=== PATIENT | male | born 1960 | race Caucasian/White ===

== ENCOUNTER 2018-08-17 11:28 | Emergency (ER) | payer MEDICARE ==
[~2018-08-17 11:28] MED LIST: DIOVAN80 MG PO; HYDROCHLOROTHIA25 MG; LISINOPRIL20 MG; NORCO 10-325 T1 EACH
--- OUTSIDE RECORDS SUMMARY | 2018-08-17 11:33 | XMS REPORT | Summary of Care ---
Author Author [facility] Address Unknown Phone Unavailable Encounter HQ Veneciar_romeo(FIN) [id number] Date(s): 06/20/18 - 07/19/18 [facility] Discharge Disposition: Home or Self Care Attending Physician: Pascual Roy MD Vital Signs No data available for this section Problem List Condition Effective Dates Status Health Status Informant Chronic back Resolved pain(Confirmed) Hearing Resolved loss(Confirmed)1 History of drug Resolved use(Confirmed) Hypertension(Confirm Resolved ed) Arthritis(Confirmed) Resolved ESTRELLA (obstructive Resolved sleep apnea)(Confirmed) Smoker(Confirmed) Resolved 1bilateral Allergies, Adverse Reactions, Alerts Substance Reaction Severity Status NKDA Active Medications No data available for this section Results No data available for this section Immunizations No data available for this section Procedures Procedure Date Related Diagnosis Body Site Status Total knee replacement1 Completed 1right Social History Social History Type Response Substance Abuse Use: Current. Type: Marijuana.1 Alcohol Past Smoking Status Current every day smoker; Type: Cigarettes; Lives with someone who smokes; Exposure to Tobacco Smoke pt smokes; Cigarette Smoking Last 365 Days Yes; Reg Smoking Cessation Counseling Yes2 entered on: 10/31/16 1history of cocaine use 21 pack per day. pt trying to quit. Assessment and Plan No data available for this section
--- OUTSIDE RECORDS SUMMARY | 2018-08-17 11:33 | XMS REPORT ---
Author Author [facility] Address Unknown Phone Unavailable Care Team Providers Care Hadoop Application Developer Name Role Phone Unavailable Unavailable Payers Payer Name Policy Type Policy Number Effective Date Expiration Date Problems This patient has no known problems. Allergies, Adverse Reactions, Alerts Allergy Name Allergy Type Status Severity Reaction(s) Onset Date Inactive Date Treating Clinician Comments No Known Allergies DA Active U 2017-07-31 00:00:00 Medications This patient has no known medications.
--- OUTSIDE RECORDS SUMMARY | 2018-08-17 11:33 | XMS REPORT | Summary of Care ---
Author Author [facility] [place] [facility] Address Unknown Phone Unavailable Encounter HQ Encntr_alinoris(FIN) [id number] Date(s): 09/01/16 - 09/01/16 [facility] [place] [address] [place] [address] [phone] Discharge Disposition: Home or Self Care Attending Physician: Taurus Sarmiento MD Vital Signs No data available for this section Problem List No data available for this section Allergies, Adverse Reactions, Alerts No data available for this section Medications No data available for this section Results No data available for this section Immunizations No data available for this section Procedures No data available for this section Social History No data available for this section Assessment and Plan No data available for this section
--- OUTSIDE RECORDS SUMMARY | 2018-08-17 11:33 | XMS REPORT | Clinical Summary ---
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 Active amlodipine-benazepril TK ONE C PO D 11 (LOTREL) 10-40 mg per 9 capsule 05/27/2018 aspirin 325 MG buffered Take 2 120 tablet 0 tablet tablets (650 9 mg total) by mouth 2 (two) times a day for 30 days. Active Problems Problem Noted Date Hypertension 04/27/2018 Painful total knee replacement 04/24/2018 Encounters Care Team Description Date Type Specialty Nino Scanlon MD 04/24/2018 Anesthesia General Surgery Event Pascual Roy MD REVISION, ARTHROPLASTY, RIGHT KNEE 04/24/2018 Surgery General Surgery Pascual Roy MD 04/24/2018 [facility] General Surgery - Encounter 04/27/2018 Pascual Roy MD 04/19/2018 Hospital Radiology Encounter Pascual Roy MD Preop testing (Primary Dx) 04/19/2018 Pre-Admit Pre-Admission Testing Testing Appointment after 08/16/2017 Family History Medical History Relation Name Comments Heart disease Brother Heart disease Father No Known Problems Mother Relation Name Status Comments Brother Father Mother Social History Date Tobacco Use Types Packs/Day Years Used Quit: 04/03/2018 Former Smoker Cigarettes 1.5 20 Smokeless Tobacco: Chew Current User Alcohol Use Drinks/Week oz/Week Comments No Alcohol Habits Answer Date Recorded How often do you have a drink containing alcohol? Never 04/19/2018 How many drinks containing alcohol do you have on Not asked a typical day when you are drinking? How often do you have six or more drinks on one Not asked occasion? Sex Assigned at Date Recorded Not on file Industry Job Start Date Occupation Not on file Not on file Not on file Travel End Travel History Travel Start No recent travel history available. Last Filed Vital Signs Time Taken Vital Sign Reading 04/27/2018 6:55 AM WIRE INSERTER Blood Pressure 154/71 04/27/2018 6:55 AM WIRE INSERTER Pulse 66 04/27/2018 6:55 AM WIRE INSERTER Temperature 36.7 C (98.1 F) 04/27/2018 6:55 AM WIRE INSERTER Respiratory Rate 18 04/27/2018 7:51 AM WIRE INSERTER Oxygen Saturation 94% - Inhaled Oxygen - Concentration 04/24/2018 11:26 AM WIRE INSERTER Weight 105 kg (230 lb 12.8 oz) 04/24/2018 11:26 AM WIRE INSERTER Height 189.2 cm (6' 2.5") 04/24/2018 11:26 AM WIRE INSERTER Body Mass Index 29.24 Plan of Treatment Health Maintenance Due Date Last Done Comments COLON CANCER SCREENING 02/16/2008 SHINGLES VACCINES (#1) 02/16/2008 INFLUENZA VACCINE 11/01/2018 Implants Device Identifier Shelf Expiration Date Model / Serial / Lot Implanted Type Area Manufactur er 03/06/2021 [id number] / [id number] / [id number] Chip Canc Allograft Leader Crs Human Right: Knee MUSCULOSKE 30cc 0.1-4mm - [id number] - Tissue LETAL [id number] Implants TRANSPLANT Implanted: Qty: 1 on 04/24/2018 by [facility] Pascual Roy MD 03/07/2021 [id number] / [id number] / [id number] Chip Canc Allograft Leader Crs Human Right: Knee MUSCULOSKE 30cc 0.1-4mm - [id number] - Tissue LETAL [id number] Implants TRANSPLANT Implanted: Qty: 1 on 04/24/2018 by [facility] Pascual Roy MD 03/02/2021 [id number] / / [id number] Obsolete Product Replacement Poly IPM Right: Knee DEPUY P.F.C Tibial Inserts Size 10.0 Mm, IMPLANT ORTHOPAEDI Size 6 Cruciate-Retaining Curved - [employer] [id number] Implanted: Qty: 1 on 04/25/2018 by Pascual Roy MD 11/01/2019 [id number] / [id number] / [id number] Putty Dbm Dbx 10cc - Orthopedic Right: Knee MUSCULOSKE [id number] - [id number] Trauma LETAL Implanted: Qty: 1 on 04/24/2018 by Implants TRANSPLANT Pascual Roy MD [facility] Procedures Comments Procedure Name Priority Date/Time Associated Diagnosis HC COMPLETE BLD COUNT Routine 04/26/2018 W/AUTO DIFF 4:39 AM WIRE INSERTER SC AN PERIPHERAL BLOCK Routine 04/24/2018 POST-OP PAIN 2:41 PM WIRE INSERTER Procedure Note - Radha Washington MD - 04/24/2018 2:41 PM WIRE INSERTER Peripheral Block Date/Time: 04/24/2018 1:50 PM Performed by: Radha Washington MD Authorized by: Radha Washington MD Patient Location: Block room Start Time: 04/24/2018 1:45 PM End Time: 04/24/2018 2:00 PM Reason for Block: post-op pain management Staff: Anesthesio logist: Donnie Mckay MD Preprocedu re: patient identified , IV checked, site and side verified, risks and benefits discussed, procedure verified, surgical consent complete, patient position confirmed, monitors and equipment checked, pre-op evaluation complete and site marked Time Out Performed: 04/24/2018 1:45 PM Peripheral Nerve Block: Patient Position: Supine Prep: ChloraPrep Monitoring : Blood pressure monitoring , continuous pulse oximetry, CO2 and heart rate Block Type: Femoral Laterality : Right Injection Technique: Single injection Procedures : ultrasound guided and nerve stimulator Ultrasound documentat ion: Not saved Local Infiltrati on (See MAR for details): Ropivacain e Needle: Needle Type: Quincke Needle Gauge: 22 G Assessment : Injection Assessment : Visualized needle/loc al anesthetic surroundin g nerve, visualized pertinent vascular structures and nerves, needle tip visualized at all times during injection of medication , intermitte nt aspiration during local anesthetic administra tion and no symptoms of intraneura l/intraven ous injection Paresthesi a Pain: None Heart Rate Change: No Slow Fractionat ed Injection: No Notes: Lidocaine 2% with Epi 10cc also mixed with ropivacain e solution. Medication s Administer ed FentaNYL (SUBLIMAZE ), 100 mcg MIDAZolam PF (VERSED) injection 1 mg/1 mL, 2 mg ropivacain e 0.5 % PF (mL), 20 mL SC AN ELECTIVE Routine 04/24/2018 SUPRAGLOTTIC AIRWAY 2:39 PM WIRE INSERTER Procedure Note - Radha Washington MD - 04/24/2018 2:39 PM WIRE INSERTER ANESTHESIA INTUBATION Performed by: Radha Washington MD Authorized by: Radha Washington MD Location: OR Urgency: Elective Difficult Airway: No Anesthesio logist: Radha Washington MD Performed by: anesthesio logist Preoxygena jaya with 100% O2: Yes Mask Ventilatio n: Easy mask Final Airway Type: Supraglott ic airway Final LMA: Unique LMA Size: 5 Number of Attempts at Approach: 1 REVISION, ARTHROPLASTY, 04/24/2018 RIGHT TOTAL KNEE KNEE 2:00 PM WIRE INSERTER REPLACEMENT FAILURE T84.84XA Special Needs NEEDS J&J, MICHAEL, TXA, 2G VANCOMYCIN POWDERJumb o with Depuy notified of case scheduled for case on 04/24 at 1400 MW. XR CHEST 2 VW Routine 04/19/2018 Preop testing 2:43 PM WIRE INSERTER ECG 12-LEAD Routine 04/19/2018 Preop testing 2:22 PM WIRE INSERTER ESTIMATED GFR Routine 04/19/2018 2:20 PM WIRE INSERTER URINALYSIS SCREEN AND Routine 04/19/2018 Preop testing MICROSCOPY, WITH REFLEX 2:20 PM WIRE INSERTER TO CULTURE PROTHROMBIN TIME WITH INR Routine 04/19/2018 Preop testing 2:20 PM WIRE INSERTER PARTIAL THROMBOPLASTIN Routine 04/19/2018 Preop testing TIME (PTT) 2:20 PM WIRE INSERTER BASIC METABOLIC PANEL Routine 04/19/2018 Preop testing 2:20 PM WIRE INSERTER HC COMPLETE BLD COUNT Routine 04/19/2018 Preop testing W/AUTO DIFF 2:20 PM WIRE INSERTER URINE CULTURE Routine 04/19/2018 2:20 PM WIRE INSERTER after 08/16/2017 Results * CBC with platelet and differential (04/26/2018 4:39 AM WIRE INSERTER) Only the most recent of 2 results within the time period is included. WBC 9.47 4.50 - 11.00 k/uL [facility] RBC 4.26 (L) 4.40 - 6.00 m/uL [facility] HGB 12.9 (L) 14.0 - 18.0 g/dL [facility] HCT 39.0 (L) 41.0 - 51.0 % [facility] MCV 91.5 82.0 - 100.0 fL [facility] MCH 30.3 27.0 - 34.0 pg [facility] MCHC 33.1 31.0 - 37.0 g/dL [facility] RDW - SD 40.0 37.0 - 55.0 fL [facility] MPV 11.0 8.8 - 13.2 fL [facility] Platelet count 173 150 - 400 k/uL [facility] Nucleated RBC 0.00 /100 WBC [facility] Neutrophils 71.2 (H) 39.0 - 69.0 % [facility] Lymphocytes 19.9 (L) 25.0 - 45.0 % [facility] Monocytes 7.7 0.0 - 10.0 % [facility] Eosinophils 0.5 0.0 - 5.0 % [facility] Basophils 0.3 0.0 - 1.0 % [facility] Specimen Blood Performing Organization Address City/State/Zipcode [place] [address] [place] [address] PATHOLOGY AND GENOMIC MEDICINE [facility] [id number] [place] [address] [place] [address] [facility] * XR Chest 2 Vw (04/19/2018 2:43 PM WIRE INSERTER) Narrative Performed At EXAMINATION:XR CHEST 2 VW [facility] CLINICAL HISTORY:Z01.818 Encounter for other preprocedural examination, preop COMPARISON:None IMPRESSION: No acute abnormality 2 view chest The lungs are clear. The heart is not enlarged. Mild degenerative changes thoracic spine and shoulders [id number] Procedure Note Hm Interface, Radiology Results Incoming - 04/19/2018 2:55 PM WIRE INSERTER EXAMINATION: XR CHEST 2 VW CLINICAL HISTORY: Z01.818 Encounter for other preprocedural examination, preop COMPARISON: None IMPRESSION: No acute abnormality 2 view chest The lungs are clear. The heart is not enlarged. Mild degenerative changes thoracic spine and shoulders [id number] Performing Organization Address City/[facility] Phone Number [facility] [address] [place] [address] * ECG 12 lead (04/19/2018 2:22 PM WIRE INSERTER) Ventricular rate 57 [facility] Atrial rate 57 [facility] SC interval 144 [facility] QRSD interval 80 [facility] QT interval 426 [facility] QTC interval 414 [facility] P axis 1 70 [facility] QRS axis 1 57 [facility] T wave axis 63 [facility] EKG impression Sinus bradycardia-Otherwise [facility]USE normal ECG-No previous ECGs available- Narrative Performed At Performing Organization Address [facility] Phone Number [facility] MUSE [address] [place] [address] * Urinalysis screen and microscopy, with reflex to culture (04/19/2018 2:20 PM WIRE INSERTER) Specimen site Clean catch [facility] Color, UA Yellow [facility] Appearance, UA Clear [facility] Specific gravity, UA 1.020 1.001 - 1.035 [facility] pH, UA 5.0 5.0 - 8.5 [facility] Protein, UA Negative Negative [facility] Glucose, UA Negative Negative [facility] Ketones, UA Negative Negative [facility] Bilirubin, UA Negative Negative [facility] Blood, UA Negative Negative [facility] Nitrite, UA Negative Negative [facility] Urobilinogen, UA Negative <2.0 [facility] Leukocyte esterase, UA Negative Negative [facility] Epithelial cells, UA Few /HPF [facility] WBC, UA 0-5 0 - 1 /HPF [facility] RBC, UA 0-5 0 - 5 /HPF [facility] Bacteria, UA None seen None seen [facility] Yeast, UA None seen [facility] Yeast with pseudohyphae, None seen [facility] UA [facility] Specimen Urine Performing Organization Address [facility] Cent[facility]out Phone Number [address] [place] [address] PATHOLOGY AND GENOMIC MEDICINE [address] * Estimated GFR (04/19/2018 2:20 PM WIRE INSERTER) Estimated GFR 81 mL/min/1.73 m2 [facility] Comment: [facility] CatergoryUnitsInte rpretation G1 >=90 Normal or high G2 60-89Mildly decreased W4i26-70 Mildly to moderately decreased M3l32-30 Moderately to severely decreased G4 15-29Severely decreased G5 <15Kidney failure The eGFR was calculated using the Chronic Kidney Disease Epidemiology Collaboration (CKD-EPI) equation. Interpretation is based on recommendations of the National Kidney Foundation-Kidney Disease Outcomes Quality Initiative (NKF-KDOQI) published in 2014. Specimen Plasma specimen Performing Organization Address [facility] Phone Number [address] [place] [address] PATHOLOGY AND GENOMIC MEDICINE [address] * Partial thromboplastin time, activated (04/19/2018 2:20 PM WIRE INSERTER) PTT 28.3 23.0 - 36.0 sec [facility] Comment: [facility] PTT therapeutic range for unfractionated heparin is 61.0-112.0 seconds which corresponds to Anti-Xa 0.3-0.7 U/ml. Specimen Blood Performing Organization Address [facility] Phone Number [address] [place] [address] PATHOLOGY AND GENOMIC MEDICINE [address] * Prothrombin time with INR (04/19/2018 2:20 PM WIRE INSERTER) Prothrombin time 12.0 11.5 - 14.5 sec [facility] INR 0.9 [facility] Comment: [facility] The International Normalized Ratio (INR) is a therapeutic monitoring tool for patients who are stable on oral anticoagulant therapy. An INR of 2.0-3.0 is suggested for deep vein thrombosis/pulmonary embolism. Specimen Blood Performing Organization Address [facility] Phone Number [address] [place] [address] PATHOLOGY AND GENOMIC MEDICINE [address] * Urine culture (04/19/2018 2:20 PM WIRE INSERTER) Urine culture SEE COMMENTComment: [facility] Bacteriuria screen negative. [facility] Specimen Urine Performing Organization Address [facility] Phone Number [address] [place] [address] PATHOLOGY AND GENOMIC MEDICINE [address] * Basic metabolic panel (04/19/2018 2:20 PM WIRE INSERTER) Sodium 143 135 - 148 mEq/L [facility] Potassium 4.5 3.5 - 5.0 mEq/L [facility] Chloride 101 98 - 112 mEq/L [facility] CO2 32 (H) 24 - 31 mEq/L [facility] Anion gap 10@ANIO 7 - 15 mEq/L [facility] BUN 14 8 - 23 mg/dL [facility] Creatinine 1.00 0.70 - 1.20 mg/dL [facility] Glucose 111 (H) 65 - 99 mg/dL [facility] Calcium 9.3 8.8 - 10.2 mg/dL [facility] Specimen Plasma specimen Performing Organization Address [facility]ercode Phone Number [address] [place] [address] PATHOLOGY AND GENOMIC MEDICINE [address] after 08/16/2017 Insurance Payer Benefit Subscriber ID Type Phone Address Plan / Group UHC MEDICARE AARP xxxxxxxxx HMO MEDICARE COMPLETE MCR Advance Directives Patient has advance care planning documents on file. For more information, ry e contact: Kimani Garnett [address] [place] [address]
--- OUTSIDE RECORDS SUMMARY | 2018-08-17 11:33 | XMS REPORT | Continuity of Care Document ---
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 09/15/2016 [facility] H71.92 - "UNSPECIFIED CHOLESTEATOMA, LEF Active 08/09/2016 [facility] [place] Chronic back pain Resolved Problem 07/21/2018 [facility] [place] Hearing loss<sup>1</sup> Resolved Problem 07/21/2018 bilateral [facility], [facility] [place] History of drug use Resolved Problem 07/21/2018 [facility] [place] Hypertension Resolved Problem 07/21/2018 [facility] [place] Arthritis Resolved Problem 07/21/2018 [facility] [place] ESTRELLA (<span [id number]">Confirmed</span>) Resolved Problem 07/21/2018 [facility] [place] Smoker Resolved Problem 07/21/2018 [facility], [facility] [place] UNSPECIFIED CHOLESTEATOMA, LEFT EAR Active [facility] UNSPECIFIED HEARING LOSS, UNSPECIFIED EA Active [facility] Medications Medication Details Route Status Patient Instructions Ordering Provider Order Date Source Oxycodone Hydrochloride 5 MG Oral Tablet 5 mg, 1 tab, Route: PO, Q6H, Dosing Weight 111.364, kg, Start date: 11/01/16 0:00:00 CDT, Duration: 30 day, Stop date: 11/30/16 18:00:00 CDT No Longer Active 11/01/2016 [facility] Acetaminophen 300 MG / Codeine Phosphate 30 MG Oral Tablet 1 tab, PO, Q4H, PRN Pain, X 7 day, # 42 tab, 0 Refill(s) Active 10/31/2016 [facility] Oxycodone Hydrochloride 5 MG Oral Tablet 5 mg, 1 tab, Route: PO, ONCE, Dosing Weight 111.364, kg, Start date: 10/31/16 18:18:00 CDT, Stop date: 10/31/16 18:18:00 CDT No Longer Active 10/31/2016 [facility] tramadol hydrochloride 50 MG Oral Tablet 50 mg=1 tab, PO, Q6H, PRN Pain, X 10 day, # 40 tab, 0 Refill(s) Inactive 10/31/2016 [facility] promethazine 12.5 mg oral tablet 12.5 mg=1 tab, PO, Q6H, PRN Nausea & Vomiting, # 28 tab, 0 Refill(s) Active 10/31/2016 [facility] Naloxone 0.4 mg, 1 mL, Route: IVP, Drug form: INJ, Q2MIN, Dosing Weight 111.364, kg, PRN Narcotic Reversal, Start date: 10/31/16 14:21:00 CDT, Duration: 8 doses or times, Stop date: 11/01/16 0:00:00 CDTNotes: Same as Narcan No Longer Active 10/31/2016 [facility] Ondansetron 4 mg, 2 mL, Route: IVP, Drug form: INJ, ONCE, Dosing Weight 111.364, kg, PRN Nausea & Vomiting, Start date: 10/31/16 14:21:00 CDTNotes: (Same as: [place]) MEDICATION WASTE Product Size: 4 mg Product Wasted: ___ mg Inactive 10/31/2016 [facility] Meperidine 12.5 mg, 0.25 mL, Route: IVP, Drug form: INJ, Q30Min, Dosing Weight 111.364, kg, PRN Other -See Comment, For shivering, Start date: 10/31/16 14:21:00 CDT, Duration: 2 doses or times, Stop date: 11/01/16 0:00:00 CDTNotes: (Same as: Demerol) "Use Precaution in Elderly, Seizure disorders, and Renal impairment" No Longer Active 10/31/2016 [facility] Flumazenil 0.2 mg, 2 mL, Route: IVP, Drug form: INJ, PRN, Dosing Weight 111.364, kg, PRN Benzodiazepine Reversal, Initial dose, Start date: 10/31/16 14:21:00 CDT, Duration: 30 day, Stop date: 11/30/16 14:20:00 CDTNotes: (Same as: Romazicon) No Longer Active 10/31/2016 [facility] Fentanyl 50 microgram, 1 mL, Route: IVP, Drug form: INJ, Q5Min, Dosing Weight 111.364, kg, PRN Pain Score 7-10, Priority: Routine, Start date: 10/31/16 14:21:00 CDT, Duration: 2 doses or times, Stop date: 11/01/16 0:00:00 CDTNotes: (Same as: Sublimaze) Preservative free. No Longer Active 10/31/2016 [facility] Oxycodone 5 mg, 1 tab, Route: PO, Drug form: TAB, Q4H, Dosing Weight 111.364, kg, PRN Pain Score 4-6, Start date: 10/31/16 14:21:00 CDT, Duration: 30 day, Stop date: 11/30/16 14:20:00 CDTNotes: (Same as: Roxic odone) No Longer Active 10/31/2016 [facility] Hydralazine 10 mg, 0.5 mL, Route: IVP, Drug form: INJ, Q20Min, Dosing Weight 111.364, kg, PRN Elevated BP, Start date: 10/31/16 14:21:00 CDT, Duration: 2 doses or times, Stop date: 11/01/16 0:00:00 CDTNotes: (Same as: Apresoline) Push over 5 minutes No Longer Active 10/31/2016 [facility] Unknown Home Medication over the counter sleep aid, Refill(s) 0 Active 10/25/2016 [facility] Acetaminophen 0 Refill(s) Active 10/25/2016 [facility] valsartan 320 mg oral tablet 320 mg=1 tab, PO, Daily, 0 Refill(s) Active 10/25/2016 [facility] Acetaminophen 325 MG / Hydrocodone Bitartrate 7.5 MG Oral Tablet [[place] 7.5/325] 1 tab, PO, Q6H, 0 Refill(s) Active 10/25/2016 [facility] Allergies, Adverse Reactions, Alerts Substance Category Reaction Severity Reaction type Status Date Reported Comments Source Immunizations Immunization Date Given Site Status Last Updated Comments Source Results Order Name Results Value Reference Range Date Interpretation Comments Source Internal Auditory Canal wo contrast CT Internal Auditory Canal wo contrast CT CT temporal bones without intravenous contrast 09/01/2016 12:44 PM CDT Clinical: Chronic ear pain. Comparison: No prior exam. Technique: Axial images were obtained. Sagittal and coronal MPR images are also submitted. The DLP is 336 mGy*cm. This exam was performed according to our department dose optimization protocol, which includes automated exposure control, adjustment of the mA and/or kV according to patient size and/or use of iterative reconstruction technique. Findings: Right temporal bone: Opacified right mastoid air cells. Unremarkable external auditory canal. Opacified right middle ear cavity including the Prussak's space, epitympanum, aditus ad antrum, and hypotympanum. The right tympanic membrane is retracted. The right middle ear ossicles appear unremarkable. The right otic labyrinth appears unremarkable. No dehiscence of the right superior semicircular canal is seen. The right internal auditory canal and right carotid canal appear unremarkable. Left temporal bone: Opacified left mastoid air cells. Left external auditory canal debris material is present. There is soft tissue opacification of the left epitympanum and aditus ad antrum. The left tympanic membrane is retracted medially. The left middle ear ossicles appear unremarkable. The left otic labyrinth appears unremarkable. The left internal auditory canal, carotid canals appear unremarkable. Impression: 1. Bilateral otomastoiditis. 2. Unremarkable bilateral otic labyrinths. 09/01/2016 - - Read by: Josh Carolina MD Dictated Date/time: 09/01/16 16:43 Electronically Signed by: Josh Carolina MD 09/01/16 16:49 FINAL REPORT BRISSA Mathias Vital Signs Vital Sign Value Date Comments Source Respitory Rate 13 10/31/2016 [facility] Systolic (mm Hg) 150 10/31/2016 [facility] Diastolic (mm Hg) 89 10/31/2016 [facility] Systolic (mm Hg) 152 10/31/2016 [facility] Diastolic (mm Hg) 92 10/31/2016 [facility] Respitory Rate 11 10/31/2016 [facility] Respitory Rate 16 10/31/2016 [facility] Systolic (mm Hg) 142 10/31/2016 [facility] Diastolic (mm Hg) 92 10/31/2016 [facility] Heart Rate 73 10/31/2016 [facility] Weight 111.364 10/31/2016 [facility] Height 190.5 cm 10/31/2016 [facility] BMI Calculated 30.69 10/31/2016 [facility] Heart Rate 71 10/25/2016 [facility] BMI Calculated 31.52 10/25/2016 [facility] Weight 111.364 10/25/2016 [facility] Height 187.96 cm 10/25/2016 [facility] Encounters Location Location Details Encounter Type Encounter Number Reason For Visit Attending Provider ADM Date DC Date Status Source [facility] [address] [facility] [id number] Taurus Sarmiento 09/01/2016 [facility]02[id number] Aydee Akhtar 10/31/2016 11/01/2016 [facility] Patients [id number] Pascual Roy 06/20/2018 07/20/2018 [facility] Procedures Procedure Code Date Perfomer Comments Source Total knee replacement<sup>1</sup> 982241394 right [facility] Total knee replacement<sup>1</sup> [id number] right [facility]
--- OUTSIDE RECORDS SUMMARY | 2018-08-17 11:33 | XMS REPORT | Summary of Care ---
Author Author Nadia Singer M.A. Unknown Address [facility] Phone Unavailable Care Team Providers Care Motor Runner Name Role Phone SOREN CENTENO M.D. 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 Hearing loss, unspecified hearing loss type, unspecified laterality (389.9, H91.90) Status: Active Status post mastoidectomy (V45.89, Z90.89) Status: Active Status post tympanoplasty (V45.89, Z98.890) Status: Active Medications Name Dates Details [place] 7.5-325 MG Oral Tablet Active Valsartan 160 MG Oral Tablet * Refills: 0 Active Ofloxacin 0.3 % Ophthalmic Solution INSTILL 10 DROP Once * Quantity: 2 Refills: 5 TARYN Harkins, SANCAK * Start : 08-Nov-2016 Active 10 ML Bottle Allergies and Adverse Reactions Name Dates Details No Known Allergies (Allergy) Status: Active Procedures Procedure Dates Details History of knee replacement Completed Immunization Name Dates Details Immunizations not documented Family History Name Dates Details No pertinent family history Comments: Other Status: Active FHx: allergies (V19.6, Z84.89) Comments: Family History Status: Active Family history of Bleeding disorder (287.9, D68.9) Comments: Family History Status: Active Family history of cardiac disorder (V17.49, Z82.49) Comments: Family History Status: Active Name Dates Details No pertinent family history Status: Active Social History Name Dates Details - Status: Name Dates Details Current every day smoker Vital Signs Date Test Result Details [id number] BP Systolic 170 mm[Hg] Status: Comments: Location: [facility]; Position: Sitting BP Diastolic 96 mm[Hg] Status: Comments: Location: [facility]; Position: Sitting Height 74 in Status: Weight 247.375 lb Status: Body Mass Index Calculated 31.76 kg/m2 Status: Body Surface Area Calculated 2.38 m2 Status: Temperature 97.9 f Status: Comments: Method: Oral Heart Rate 55 /min Status: Results Date Description Value Details Results not documented Plan of Care Name Dates Details Planned Observations Planned Goals not documented Instructions Name Dates Details Instructions not documented Encounters Appointment; JOSE MITCHELL M.D. Encounter Diagnosis: Problem not documented On: 08-Aug-2016 10:15 Appointment; SOREN CENTENO M.D. Encounter Diagnosis: Problem not documented On: 06-Sep-2016 13:00 Appointment; SOREN CENTENO M.D. Encounter Diagnosis: Problem not documented On: 08-Nov-2016 10:15 Appointment; LIONEL BE Encounter Diagnosis: Problem not documented On: 10-Jan-2017 9:30 Appointment; ANY DUBON Encounter Diagnosis: Problem not documented On: 28-Mar-2017 15:30 Appointment; SOREN CENTENO M.D. Encounter Diagnosis: Problem not documented On: 07-Apr-2017 10:30
--- OUTSIDE RECORDS SUMMARY | 2018-08-17 11:33 | XMS REPORT | Summary of Care ---
Author Author [facility] Organization [facility] Address Unknown Phone Unavailable Encounter LENARD [place](DAVID) [id number] Date(s): 10/31/16 - 10/31/16 [facility] [address] [place] [address]- [phone] Discharge Disposition: Home or Self Care Attending Physician: Aydee Akhtar MD Referring Physician: Aydee Akhtar MD Vital Signs 1 2 3 Most recent to oldest [Reference Range]: 190.5 cm (10/31/16 7:30 AM) 187.96 cm (10/25/16 1:57 PM) Height 150/89 mmHg *HI* (10/31/16 5:15 PM) 152/92 mmHg *HI* (10/31/16 5:00 PM) 142/92 mmHg *HI* (10/31/16 4:45 PM) Blood Pressure [90-140/60-90 mmHg] 13 BRMIN *LOW* (10/31/16 5:15 PM) 11 BRMIN *LOW* (10/31/16 5:00 PM) 16 BRMIN (10/31/16 4:45 PM) Respiratory Rate [14-20 BRMIN] 73 bpm (10/31/16 7:30 AM) 71 bpm (10/25/16 1:57 PM) Peripheral Pulse Rate [60-100 bpm] 111.364 kg (10/31/16 7:30 AM) 111.364 kg (10/25/16 1:57 PM) Weight 30.69 m2 (10/31/16 7:30 AM) 31.52 m2 (10/25/16 1:57 PM) Body Mass Index Problem List Condition Effective Dates Status Health Status Informant Chronic back Resolved pain(Confirmed) Hearing Resolved loss(Confirmed)1 History of drug Resolved use(Confirmed) Hypertension(Confirm Resolved ed) Arthritis(Confirmed) Resolved ESTRELLA (obstructive Resolved sleep apnea)(Confirmed) Smoker(Confirmed) Resolved 1bilateral Allergies, Adverse Reactions, Alerts Substance Reaction Severity Status NKDA Active Medications acetaminophen 0 Refill(s) Start Date: 10/25/16 Status: Ordered acetaminophen-codeine 300 mg-30 mg oral tablet 1 tab, PO, Q4H, PRN Pain, X 7 day, # 42 tab, 0 Refill(s) Start Date: 10/31/16 Stop Date: 11/07/16 Status: Ordered ANES fentaNYL 50 microgram, 1 mL, Route: IVP, Drug form: INJ, Q5Min, Dosing Weight 111.364, kg , PRN Pain Score 7-10, Priority: Routine, Start date: 10/31/16 14:21:00 CDT, Dur ation: 2 doses or times, Stop date: 11/01/16 0:00:00 CDT Notes: (Same as: Sublimaze) Preservative free. Start Date: 10/31/16 Stop Date: 11/01/16 Status: Completed ANES flumazenil 0.2 mg, 2 mL, Route: IVP, Drug form: INJ, PRN, Dosing Weight 111.364, kg, PRN Be nzodiazepine Reversal, Initial dose, Start date: 10/31/16 14:21:00 CDT, Duration : 30 day, Stop date: 11/30/16 14:20:00 CDT Notes: (Same as: Romazicon) Start Date: 10/31/16 Stop Date: 11/01/16 Status: Discontinued ANES hydrALAZINE 10 mg, 0.5 mL, Route: IVP, Drug form: INJ, Q20Min, Dosing Weight 111.364, kg, SC N Elevated BP, Start date: 10/31/16 14:21:00 CDT, Duration: 2 doses or times, St op date: 11/01/16 0:00:00 CDT Notes: (Same as: Apresoline)Push over 5 minutes Start Date: 10/31/16 Stop Date: 11/01/16 Status: Completed ANES meperidine 12.5 mg, 0.25 mL, Route: IVP, Drug form: INJ, Q30Min, Dosing Weight 111.364, kg, PRN Other -See Comment, For shivering, Start date: 10/31/16 14:21:00 CDT, Durat ion: 2 doses or times, Stop date: 11/01/16 0:00:00 CDT Notes: (Same as: Demerol) "Use Precaution in Elderly, Seizure disorders, and Re nal impairment" Start Date: 10/31/16 Stop Date: 11/01/16 Status: Completed ANES naloxone 0.4 mg, 1 mL, Route: IVP, Drug form: INJ, Q2MIN, Dosing Weight 111.364, kg, PRN Narcotic Reversal, Start date: 10/31/16 14:21:00 CDT, Duration: 8 doses or times , Stop date: 11/01/16 0:00:00 CDT Notes: Same as Narcan Start Date: 10/31/16 Stop Date: 11/01/16 Status: Completed ANES ondansetron 4 mg, 2 mL, Route: IVP, Drug form: INJ, ONCE, Dosing Weight 111.364, kg, PRN [place] & Vomiting, Start date: 10/31/16 14:21:00 CDT Notes: (Same as: [place]) MEDICATION WASTE Product Size: 4 mgProduct Was jaya: ___ mg Start Date: 10/31/16 Stop Date: 10/31/16 Status: Completed ANES oxyCODONE 5 mg, 1 tab, Route: PO, Drug form: TAB, Q4H, Dosing Weight 111.364, kg, PRN Pain Score 4-6, Start date: 10/31/16 14:21:00 CDT, Duration: 30 day, Stop date: 11/03 14:20:00 CDT Notes: (Same as: Roxicodone) Start Date: 10/31/16 Stop Date: 11/01/16 Status: Discontinued [place] 7.5/325 oral tablet 1 tab, PO, Q6H, 0 Refill(s) Start Date: 10/25/16 Status: Ordered oxyCODONE 5 mg oral tablet 5 mg, 1 tab, Route: PO, Q6H, Dosing Weight 111.364, kg, Start date: 11/01/16 0:0 0:00 CDT, Duration: 30 day, Stop date: 11/30/16 18:00:00 CDT Start Date: 11/01/16 Stop Date: 10/31/16 Status: Canceled oxyCODONE 5 mg oral tablet 5 mg, 1 tab, Route: PO, ONCE, Dosing Weight 111.364, kg, Start date: 10/31/16 18 :18:00 CDT, Stop date: 10/31/16 18:18:00 CDT Start Date: 10/31/16 Stop Date: 11/01/16 Status: Discontinued promethazine 12.5 mg oral tablet 12.5 mg=1 tab, PO, Q6H, PRN Nausea & Vomiting, # 28 tab, 0 Refill(s) Start Date: 10/31/16 Stop Date: 11/07/16 Status: Ordered tramadol 50 mg oral tablet 50 mg=1 tab, PO, Q6H, PRN Pain, X 10 day, # 40 tab, 0 Refill(s) Start Date: 10/31/16 Stop Date: 10/31/16 Status: Discontinued Unknown Home Medication over the counter sleep aid, Refill(s) 0 Start Date: 10/25/16 Status: Ordered valsartan 320 mg oral tablet 320 mg=1 tab, PO, Daily, 0 Refill(s) Start Date: 10/25/16 Status: Ordered Results No data available for this section Immunizations No data available for this section Procedures Procedure Date Related Diagnosis Body Site Total knee replacement1 1right Social History Social History Type Response Substance Abuse Use: Current. Type: Marijuana.1 Alcohol Past Smoking Status Current every day smoker; Type: Cigarettes; Lives with someone who smokes; Exposure to Tobacco Smoke pt smokes; Cigarette Smoking Last 365 Days Yes; Reg Smoking Cessation Counseling Yes2 1history of cocaine use 21 pack per day. pt trying to quit. Assessment and Plan No data available for this section
== END 2018-08-17 11:32 | disposition short-term general hospital (02) ==
LOC: ER 11:28
DX: M79.604 Pain in right leg (principal)

== ENCOUNTER 2020-04-04 13:15 | Emergency (ER) | payer MEDICARE ==
[~2020-04-04] VITALS: Ht 188 cm; Wt 100.7 kg
[2020-04-04] MEDS ORDERED: CLINDAMYCIN HC150 MG PO (13:23)
[2020-04-04] MEDS ORDERED: PERIDEX473 M1 PO (13:23)
== END 2020-04-04 13:36 | disposition home or self-care (01) ==
LOC: ER 13:36
DX: K02.9 Dental caries, unspecified (principal); E78.5 Hyperlipidemia, unspecified; M54.9 Dorsalgia, unspecified; G89.29 Other chronic pain; Z96.651 Presence of right artificial knee joint
CPT/HCPCS: 99283